=== PATIENT | female | born 1970 | race Two or more races ===

== ENCOUNTER 2017-06-08 20:02 | Observation (INO) | payer SELFPAY ==
[2017-06-08] MEDS ORDERED: ASPIRIN 325 MG TABLET PO ONE (20:27)
--- NOTE | 2017-06-08 20:28 | ER Document Report ---
ED Medical Screen (RME) - General Chief Complaint: Chest Pain Stated Complaint: CHEST PAIN Time Seen by Provider: 06/08/17 20:26 Mode of Arrival: Wheelchair Information source: Patient TRAVEL OUTSIDE OF THE [place] IN LAST 30 DAYS: No - HPI Patient complains to provider of: CP Onset: Just prior to arrival - pt . with onset of SSCP with some SOB starting earlier this evening. Denies diaphoresis or radiation of pain - Related Data Allergies/Adverse Reactions: No Known Allergies Allergy (Unverified 06/08/17 20:20) Physical Exam - Vital signs Vitals: Temp Pulse Resp BP Pulse Ox 97.8 F 93 12 115/70 100 06/08/17 20:15 06/08/17 20:15 06/08/17 20:15 06/08/17 20:15 06/08/17 20:15 Course - Vital Signs Vital signs: Temp Pulse Resp BP Pulse Ox 97.8 F 93 12 115/70 100 06/08/17 20:15 06/08/17 20:15 06/08/17 20:15 06/08/17 20:15 06/08/17 20:15
[2017-06-08 21:14] LABS: ABSOLUTE BASOPHILS # (AUTO) 0.1 10^3/uL (0.0-0.2); ABSOLUTE EOSINOPHILS # (AUTO) 0.1 10^3/uL (0.0-0.6); ABSOLUTE LYMPHOCYTES (AUTO) 2.4 10^3/uL (0.5-4.7); ABSOLUTE MONOCYTES (AUTO) 0.8 10^3/uL (0.1-1.4); ABSOLUTE NEUT (AUTO) 10.1 10^3/uL (1.7-8.2); BASOPHILS % (AUTO) 0.5 % (0-2); EOSINOPHILS % (AUTO) 0.8 % (0-6); HEMATOCRIT 37.3 % (36.0-47.0); HEMOGLOBIN 12.6 g/dL (12.0-15.5); HGB HCT DIFFERENCE 0.5; LYMPHOCYTES % (AUTO) 17.5 % (13-45); MEAN CORPUSCULAR HEMOGLOBIN 28.5 pg (27.0-33.4); MEAN CORPUSCULAR HGB CONC 33.8 g/dL (32.0-36.0); MEAN CORPUSCULAR VOLUME 84 fl (80-97); RED BLOOD COUNT 4.42 10^6/uL (3.72-5.28); RED CELL DISTRIBUTION WIDTH 13.7 % (11.5-14.0); SEGMENTED NEUTROPHILS % (AUTO) 75.2 % (42-78); WHITE BLOOD COUNT 13.5 10^3/uL (4.0-10.5)
[2017-06-08 21:28] LABS: ALANINE AMINOTRANSFERASE 34 U/L (9-52); ALBUMIN 4.1 g/dL (3.5-5.0); ALKALINE PHOSPHATASE 98 U/L (38-126); ANION GAP 14 (5-19); ASPARTATE AMINO TRANSFERASE 21 U/L (14-36); BILIRUBIN,DIRECT 0.3 mg/dL (0.0-0.4); BILIRUBIN,TOTAL 0.4 mg/dL (0.2-1.3); BLOOD UREA NITROGEN 15 mg/dL (7-20); CALCIUM 9.8 mg/dL (8.4-10.2); CARBON DIOXIDE 24 mmol/L (22-30); CHLORIDE 103 mmol/L (98-107); CREATINE KINASE 68 U/L (30-135); CREATININE RESULT 0.64 mg/dL (0.52-1.25); GLUCOSE 113 mg/dL (75-110); POTASSIUM 4.7 mmol/L (3.6-5.0); SODIUM 140.5 mmol/L (137-145); TOTAL PROTEIN 7.1 g/dL (6.3-8.2)
--- NOTE | 2017-06-08 21:29 | RADIOLOGY REPORT (SQ) ---
EXAM DESCRIPTION: CHEST PA/LAT COMPLETED DATE/TIME: 06/08/2017 9:22 pm REASON FOR STUDY: CP COMPARISON: None. EXAM PARAMETERS: NUMBER OF VIEWS: two views TECHNIQUE: Digital Frontal and Lateral radiographic views of the chest acquired. RADIATION DOSE: NA LIMITATIONS: none FINDINGS: LUNGS AND PLEURA: No opacities, masses or pneumothorax. No pleural effusion. MEDIASTINUM AND HILAR STRUCTURES: No masses or contour abnormalities. HEART AND VASCULAR STRUCTURES: Heart normal size. No evidence for failure. BONES: No acute findings. HARDWARE: None in the chest. OTHER: No other significant finding. IMPRESSION: NO SIGNIFICANT RADIOGRAPHIC FINDING IN THE CHEST. TECHNICAL DOCUMENTATION: JOB ID: [id number] [employer]- All Rights Reserved
[2017-06-08 21:39] LABS: CREATINE KINASE MB 1.36 ng/mL (<4.55)
[2017-06-08 21:47] LABS: TROPONIN I < 0.012 ng/mL
[2017-06-08] MEDS ORDERED: NORMAL SALINE 500 ML IV ONE (23:17)
--- NOTE | 2017-06-08 23:25 | ER Document Report ---
ED General - General Chief Complaint: Chest Pain Stated Complaint: CHEST PAIN Time Seen by Provider: 06/08/17 20:26 Mode of Arrival: Wheelchair Notes: Patient is a 47-year-old female. She is obtained using [employer] interpreter services. Dressing Room Attendant number is [id number]. Patient's 47-year-old female who was walking out of her car. Her are on the way to a social event. She said she did feel chest pressure and then passed out. When she woke up she continued to have chest pressure. She said she felt a heaviness in her chest and felt like someone sitting on her chest. She has had some numbness going into her right arm. She felt short of breath with the symptoms. They continued for approximately an hour. Her symptoms have now slowly subsided. She has never had anything like this before. She personally has no history of coronary disease. She does not see regular basis. She does smoke. She does have a family history of coronary disease. Her father recently had what sounds to be open heart surgery. She denies any leg pain or leg swelling. No history of PE or DVT. She denies any recent fevers or infections. No other complaints at this time. TRAVEL OUTSIDE OF THE [place] IN LAST 30 DAYS: No - Related Data Allergies/Adverse Reactions: No Known Allergies Allergy (Unverified 06/08/17 20:20) Past Medical History - General Information source: Patient - Social History Smoking Status: Current Every Day Smoker Chew tobacco use (# tins/day): No Frequency of alcohol use: Social Drug Abuse: None Family History: CAD Patient has suicidal ideation: No Patient has homicidal ideation: No Renal/ Medical History: Denies: Hx Peritoneal Dialysis Review of Systems - Review of Systems Notes: My Normal Review Basic REVIEW OF SYSTEMS: CONSTITUTIONAL : Denies fever, chills, or sweats. Denies recent illness. EENT: Denies eye, ear, throat, or mouth pain or symptoms. Denies nasal or sinus congestion. CARDIOVASCULAR: Heaviness on chest. RESPIRATORY: Difficulty breathing. GASTROINTESTINAL: Denies abdominal pain. Denies nausea, vomiting, or diarrhea. Denies constipation. Last BM: MUSCULOSKELETAL: Denies neck or back pain or joint pain or swelling. SKIN: Denies rash or skin lesions. NEUROLOGICAL: Syncopal episode. Denies headache. Denies weakness or paralysis or loss of use of either side. Denies problems with gait or speech. Denies sensory or motor loss. ALL OTHER SYSTEMS REVIEWED AND NEGATIVE. Physical Exam - Vital signs Vitals: Temp Pulse Resp BP Pulse Ox 97.8 F 93 12 115/70 100 06/08/17 20:15 06/08/17 20:15 06/08/17 20:15 06/08/17 20:15 06/08/17 20:15 - Notes Notes: General Appearance: Well nourished, alert, cooperative, no acute distress, no obvious discomfort. Well appearing. Vitals: reviewed, See vital signs table. Head: no swelling or tenderness to the head Eyes: PERRL, EOMI, Conjuctiva clear Mouth: No decreasd moisture Lungs: No wheezing, No rales, No rhonci, No accessory muscle use, good air exchange bilaterally. Heart: Normal rate, Regular rythm, No murmur, no rub Abdomen: Normal BS, soft, No rigidity, No abdominal tenderness, No guarding, no rebound, no abdominal masses, no organomegaly Extremities: strength 5/5 in all extremities, good pulses in all extremities, no swelling or tenderness in the extremities, no edema. Skin: warm, dry, appropriate color, no rash Neuro: speech clear, oriented x 3, normal affect, responds appropriately to questions. Course - Re-evaluation Re-evalutation: 06/08/17 23:24 I am concerned with the patient's history. She is a heart score for. I did speak with Dr. Bonilla she requests that we do a CTA first before she admits the patient due to the history of syncope with the chest pain. I did explain this to the patient using the park interpreter and she is agreeable to having a CTA obtained. 06/09/17 00:19 CTA was negative. I did speak with Dr. Bonilla who agrees with the patient. Patient's R scores of 4. This is due to his history, age, and risk factors. Dictation of this chart was performed using voice recognition software; therefore, there may be some unintended grammatical errors. - Vital Signs Vital signs: Temp Pulse Resp BP Pulse Ox 97.8 F 93 20 114/68 100 06/08/17 20:15 06/08/17 20:15 06/08/17 23:19 06/08/17 23:19 06/08/17 23:19 - Laboratory Result Diagrams: 06/08/17 20:26 06/08/17 20:26 Laboratory results interpreted by me: 06/08/17 06/08/17 20:26 20:26 WBC 13.5 H Absolute Neutrophils 10.1 H Glucose 113 H - EKG Interpretation by Me Additional EKG results interpreted by me: 06/08/17 23:25 EKG is reviewed and interpreted by me. EKG shows normal sinus rhythm with rate of [address] segment elevation or depression. No ischemic T-wave inversions. [place] interval, QRS duration, QTc intervals are within normal range. No old EKG available for comparison. Discharge - Discharge Clinical Impression: Chest pain Qualifiers: Chest pain type: unspecified Qualified Code(s): R07.9 - Chest pain, unspecified Condition: Stable Disposition: ADMITTED OBSERVATION Admitting Provider: Hospitalist Unit Admitted: Telemetry
--- NOTE | 2017-06-09 00:12 | RADIOLOGY REPORT (SQ) ---
EXAM DESCRIPTION: CTA of the chest per PE protocol with contrast. CLINICAL HISTORY: chest pain, syncope COMPARISON: None Available. TECHNIQUE: CTA of the chest obtained following the uncomplicated intravenous administration of 61 mL Isovue-370. 3-D/MIP reformatted images of the chest available for evaluation. FINDINGS: Chest: Mediastinal windows demonstrate an excellent contrast bolus. No pulmonary embolus identified. Visualized thyroid gland is unremarkable. Great vessels have normal anatomic configuration. No cardiomegaly, coronary artery atherosclerosis, or pericardial effusion. No abnormalities of the esophagus. Scattered mediastinal lymph nodes are not enlarged by CT criteria. Lung windows demonstrate no consolidation, pneumothorax, or pleural effusion. No abnormalities of the visualized trachea or airways. Limited images of the upper abdomen demonstrate no abnormalities of the visualized liver, spleen, pancreas, left adrenal gland, gallbladder, or kidneys. 1.5 cm lipid rich left adrenal adenoma is almost certainly benign and requires no further follow-up. No destructive osseous lesions. Normal degenerative change of the thoracic spine. DLP: 478.83 mGycm IMPRESSION: 1. No pulmonary embolism identified. This exam was performed according to our departmental dose-optimization program, which includes automated exposure control, adjustment of the mA and/or kV according to patient size and/or use of iterative reconstruction technique.
[2017-06-09] MEDS ORDERED: NORMAL SALINE 1000 ML 2,000 ML IV ONE (01:55)
[2017-06-09] MEDS ORDERED: NITROGLYCERIN 0.4 MG/TAB 25 TAB/BOTTLE SL PRN (01:59)
[2017-06-09] MEDS ORDERED: NORMAL SALINE 1000 ML 1,000 ML IV PRN (01:59)
[2017-06-09] MEDS ORDERED: LANSOPRAZOLE 30 MG TAB.RAP.DR PO ONE (01:59)
[2017-06-09] MEDS ORDERED: DIAZEPAM 5 MG TABLET PO PRN (01:59)
[2017-06-09] MEDS ORDERED: MORPHINE SULFATE 10 MG/ML INJ IV PRN (01:59)
[2017-06-09] MEDS ORDERED: ONDANSETRON HCL INJ/PF 4 MG/2 ML SDV IV PRN (01:59)
[2017-06-09] MEDS ORDERED: MAG HYDROX/AL HYDROX/SIMETH SUSP 30 ML UDCUP PO PRN (01:59)
[2017-06-09] MEDS ORDERED: ATORVASTATIN CALCIUM 40 MG TABLET PO ONE (02:15)
[2017-06-09 03:44] LABS: CREATINE KINASE MB 1.26 ng/mL (<4.55)
[2017-06-09 03:48] LABS: CHOLESTEROL 161.52 mg/dL (0-200); Direct HDL 45 mg/dL (>40); TRIGLYCERIDES 109 mg/dL (<150)
[2017-06-09 03:56] LABS: TROPONIN I < 0.012 ng/mL
[2017-06-09 03:59] LABS: DIRECT LDL 111 mg/dL (<100)
--- NOTE | 2017-06-09 04:28 | PDOC H&P ---
History of Present Illness Admission Date/PCP: 06/09/17 00:58 NO PCP History of Present Illness: SID HCEEMA is a 47 year old female with no past medical history with the exception of an ulcer who presents to the emergency department with complaints of chest pain and syncope. Patient reports she was getting out of the car she developed blurry vision and had a subsequent loss of consciousness. Patient did not strike her head and denies any pain in her neck. She reports that she began having some chest pressure that radiated to her right arm after arousing from her syncopal state. She reports she continued to have chest pain for about 1 hour which resolved without the administration of nitroglycerin or analgesics. Patient did report that her chest pain was associated with some shortness of breath but denied any nausea, vomiting, or diaphoresis. She denies any aggravating or relieving symptoms. Patient does report that she continues to have menses and she is currently on her menstrual. CTA performed in the emergency department is negative for acute pulmonary embolus. She is referred to the hospitalist service for evaluation of chest pain. Past Medical History Cardiac Medical History: Denies: Congestive Heart Failure, Myocardial Infarction, Hypertension Pulmonary Medical History: Denies: Asthma, Bronchitis, Chronic Obstructive Pulmonary Disease (COPD), Pneumonia, Tuberculosis Neurological Medical History: Denies: Seizures Renal/ Medical History: Denies: End Stage Renal Disease GI Medical History: Reports: Gastroesophageal Reflux Disease, Peptic Ulcer Disease Denies: Cirrhosis Musculoskeltal Medical History: Denies: Arthritis Psychiatric Medical History: Denies: Bipolar Disorder, Depression Hematology: Denies: Anemia, Bleeding Tendencies Past Surgical History Past Surgical History: Reports: Section Social History Smoking Status: Former Smoker Frequency of Alcohol Use: Occasional Hx Recreational Drug Use: No Drugs: None Hx Prescription Drug Abuse: No - Advance Directive Resuscitation Status: Full Code Surrogate healthcare decision maker:: Son, Elile Treviño Family History Family History: CAD, DM Parental Family History Reviewed: Yes Children Family History Reviewed: Yes Sibling(s) Family History Reviewed.: Yes Medication/Allergy Allergies/Adverse Reactions: No Known Allergies Allergy (Unverified 06/08/17 20:20) Review of Systems Constitutional: ABSENT: chills, fever(s), headache(s), weight gain, weight loss Eyes: ABSENT: visual disturbances Ears: ABSENT: hearing changes Cardiovascular: ABSENT: chest pain, dyspnea on exertion, edema, orthropnea, palpitations Respiratory: ABSENT: cough, hemoptysis Gastrointestinal: PRESENT: abdominal pain, constipation, heartburn. ABSENT: diarrhea, hematemesis, hematochezia, melena, nausea, vomiting Genitourinary: ABSENT: dysuria, hematuria Musculoskeletal: ABSENT: joint swelling Integumentary: ABSENT: rash, wounds Neurological: ABSENT: abnormal gait, abnormal speech, confusion, dizziness, focal weakness, syncope Psychiatric: ABSENT: anxiety, depression, homidical ideation, suicidal ideation Endocrine: ABSENT: cold intolerance, heat intolerance, polydipsia, polyuria Hematologic/Lymphatic: ABSENT: easy bleeding, easy bruising Physical Exam Vital Signs: Temp Pulse Resp BP Pulse Ox 98.2 F 67 17 109/48 L 100 06/09/17 02:13 06/09/17 02:40 06/09/17 02:13 06/09/17 02:13 06/09/17 02:13 General appearance: PRESENT: no acute distress, well-developed, well-nourished Head exam: PRESENT: atraumatic, normocephalic Eye exam: PRESENT: conjunctiva pink, EOMI, PERRLA. ABSENT: scleral icterus Ear exam: PRESENT: normal external ear exam Mouth exam: PRESENT: moist, tongue midline Neck exam: ABSENT: carotid bruit, JVD, lymphadenopathy, thyromegaly Respiratory exam: PRESENT: clear to auscultation vicente. ABSENT: rales, rhonchi, wheezes Cardiovascular exam: PRESENT: RRR. ABSENT: diastolic murmur, rubs, systolic murmur Pulses: PRESENT: normal dorsalis pedis pul Vascular exam: PRESENT: normal capillary refill GI/Abdominal exam: PRESENT: normal bowel sounds, soft, tenderness - Diffusely tender. ABSENT: distended, guarding, mass, organolmegaly, rebound Rectal exam: PRESENT: deferred Extremities exam: PRESENT: full ROM. ABSENT: calf tenderness, clubbing, pedal edema Neurological exam: PRESENT: alert, awake, oriented to person, oriented to place , oriented to time, oriented to situation, CN II-XII grossly intact. ABSENT: motor sensory deficit Psychiatric exam: PRESENT: appropriate affect, normal mood. ABSENT: homicidal ideation, suicidal ideation Skin exam: PRESENT: dry, intact, warm, other - Acanthosis nigricans around the neck and armpits. ABSENT: cyanosis, rash Results Laboratory Results: 06/09/17 02:45 Triglycerides 109 Cholesterol 161.52 LDL Cholesterol Direct 111 H VLDL Cholesterol 22.0 HDL Cholesterol 45 06/09/17 02:45 CK-MB (CK-2) 1.26 Troponin I < 0.012 Impressions: Chest X-Ray 06/08/17 20:26 IMPRESSION: NO SIGNIFICANT RADIOGRAPHIC FINDING IN THE CHEST. Chest/Abdomen CTA 06/08/17 23:17 IMPRESSION: 1. No pulmonary embolism identified. This exam was performed according to our departmental dose-optimization program, which includes automated exposure control, adjustment of the mA and/or kV according to patient size and/or use of iterative reconstruction technique. Assessment & Plan - Diagnosis (1) Chest pain Qualifiers: Chest pain type: unspecified Qualified Code(s): R07.9 - Chest pain, unspecified Is this a current diagnosis for this admission?: Yes Plan: Place patient on aspirin, nitroglycerin, morphine, but no beta-ashlyn or JAKOB inhibitor at this time as patient is mildly hypotensive. Feel the patient's syncopal episode is likely related to orthostasis. Will check orthostatics and administer a 2 L bolus of normal saline. Place patient on telemetry and monitor for arrhythmia. Check fasting lipid panel. Check cardiac enzymes every [address] patient for stress test. She has a family history and is obese. She does not normally follow with physician. I have informed her family that it is incompetent on them to have her follow with her primary care physician for routine maintenance. (2) Obesity (BMI 30.0-34.9) Is this a current diagnosis for this admission?: Yes (3) Acanthosis nigricans Is this a current diagnosis for this admission?: Yes Plan: Check hemoglobin A1c (4) Peptic ulcer disease Is this a current diagnosis for this admission?: Yes Plan: Place patient on PPI - Time Time Spent: 30 to 50 Minutes Medications reviewed and adjusted accordingly: Yes Anticipated discharge: Home Within: within 48 hours - Inpatient Certification Based on my medical assessment, after consideration of the patient's comorbidities, presenting symptoms, or acuity I expect that the services needed warrant INPATIENT care.: No I certify that my determination is in accordance with my understanding of Medicare's requirements for reasonable and necessary INPATIENT services [42 CFR 412.3e].: No Medical Necessity: Need For Continuous Telemetry Monitoring Post Hospital Care: D/C [employer] Documentation
[2017-06-09] MEDS ORDERED: NORMAL SALINE 1000 ML 1,000 ML IV ONE (04:53)
[2017-06-09] MEDS ORDERED: LANSOPRAZOLE 30 MG TAB.RAP.DR PO SCH (06:00)
[2017-06-09 09:08] LABS: CREATINE KINASE MB 1.23 ng/mL (<4.55)
[2017-06-09 09:14] LABS: TROPONIN I < 0.012 ng/mL
--- NOTE | 2017-06-09 09:14 | EKG REPORT ---
SEVERITY:- NORMAL ECG - SINUS RHYTHM : Confirmed by: Valdo Murry 09-Jun-2017 09:12:57
[2017-06-09] MEDS ORDERED: ENOXAPARIN SODIUM INJ 80 MG/0.8 ML DISP.SYRIN SUBCUT SCH (10:00)
[2017-06-09] MEDS ORDERED: ASPIRIN 325 MG TABLET, ENT COATED PO SCH (10:00)
[2017-06-09] MEDS ORDERED: DOCUSATE SODIUM 100 MG CAPSULE PO SCH (10:00)
[2017-06-09] MEDS ORDERED: AMINOPHYLLINE INJ/PF 250 MG/10 ML SDV IV ONE (12:24)
[2017-06-09] MEDS ORDERED: REGADENOSON INJ 0.4 MG/5 ML DISP.SYRIN IV ONE (12:24)
--- NOTE | 2017-06-09 14:34 | DRAGON STRESS TEST REPORT ---
INTRAVENOUS LEXISCAN CARDIOLITE STRESS TEST USING SINGLE PHOTON EMMISION COMPUTERIZED TOMOGRAPHIC. DATE OF PROCEDURE: June 09, 2017 INDICATION : Chest pain CARDIAC RISK FACTORS: Dyslipidemia, family history of CAD RESTING EKG: Sinus rhythm without any baseline ST-T wave changes STRESS EKG: No significant changes noted with LexiScan bolus REASON FOR TERMINATION: Protocol. PROCEDURE REPORT: Baseline heart rate 69 beats per minute with blood pressure of 104/64. Patient had no significant complaints. Heart rate at 2 minutes post bolus 113 with a blood pressure of 116/59. 3 minutes post bolus heart rate 105 with blood pressure of 108/63. No significant EKG changes were noted. Patient had no significant complaints during the procedure or postprocedure. Patient injected with Aminophyllin 75 mg at 3 minutes or later after Lexiscan bolus. CONCLUSIONS: Normal EKG and hemodynamic response to IV LexiScan. NUCLEAR DATA: At rest the patient was given 10.49 millicuries of technetium 99 sestamibi injected intravenously. As per protocol rest gated SPECT images were obtained. Subsequently the patient was given intravenous LexiScan at a dose of 0.4 mg in 5 mL intravenously, followed by flush with normal saline. Subsequently the stress dose of 31.2 millicuries of technetium 99 sestamibi was injected intravenously. As per protocol stress gated images were obtained. NUCLEAR INTERPRETATION: Both raw and processed data were used for interpretation. Visual, qualitative, computer-generated quantitative data was used. There was good myocardial uptake of technetium compound. Motion artifact and soft tissue attenuations were noted. Increased visceral uptake was noted. No definitive areas of transient perfusion defect noted. No definitive areas of fixed perfusion defect or scars noted. EKG gated imaging showed LV EF at 60 %, rest and stress gated EF similar visually. T. I D. ratio was 0.96. Lung heart ratio noted to be within normal limits 0.36. No significant extracardiac and abnormal radiotracer activities were noted. RV free wall uptake was noted to be WNL. IMPRESSION: Also refer to comments under nuclear interpretation. Also test results needs to be interpreted in the context of pretest probability. 1. There is no definitive scintigraphic evidence of LexiScan induced myocardial ischemia. 2. There is no definitive scintigraphic evidence of myocardial infarction/scar. 3. EKG gated imaging shows left ventricular ejection fraction of approximately 60 %. 4. Clinical correlation requested as occasionally single vessel disease or balanced ischemia could be missed. In approximately 10% of the cases Lexiscan may not cause adequate vasodilatory stress. RECOMMENDATIONS: Aggressive risk factor modification, medical therapy. Clinical correlation with echocardiogram derived ejection fraction. Inability to exercise by itself can lead to increased cardiovascular event risks. Consider cardiology consultation and or follow-up if clinically indicated. I AM AVAILABLE FOR CARDIOLOGY CONSULTATION AND FOLLOWUP IF REQUESTED BY PMD Valdo Murry M.D., [employer] french weaver, Board certified in cardiovascular diseases, Nuclear cardiology, Echocardiography Cardiac CT and cardiac MRI Ph. [phone] [facility]
[2017-06-09 15:26] LABS: CREATINE KINASE MB 1.29 ng/mL (<4.55)
[2017-06-09 15:32] LABS: TROPONIN I < 0.012 ng/mL
--- NOTE | 2017-06-09 15:38 | PDOC DISCHARGE SUMMARY ---
General - Admit/Disc Date/PCP Admission Date/Primary Care Provider: 06/09/17 00:58 Discharge Date: 06/09/17 - Discharge Diagnosis (1) Chest pain Is this a current diagnosis for this admission?: Yes Summary: Patient denies any further chest pain resolved about 230 this morning in the ER. She had negative stress test stable for discharge home - Additional Information Resuscitation Status: Full Code Discharge Diet: As Tolerated Discharge Activity: Activity As Tolerated Home Medications: Atorvastatin Calcium [Lipitor 40 mg Tablet] 40 mg PO QHS #30 tablet 06/09/17 History of Present Illness History of Present Illness: SID CHEEMA is a 47 year old female speaking only patient was admitted for chest pain. I did go through the approved hospital medical interpreter this morning for my assessment. Patient denies any further complaints of chest pain. She does eat quite a bit of hot spicy food and has been taken a lot of Tylenol and Advil [id number] for headaches. She has had a history of PUD in which she takes medication [id number] and I will encourage her to continue that. While the patient was in the hospital she underwent a stress test that was negative for acute ischemia. Patient denies having any more chest pain no nausea vomiting diaphoresis shortness of breath. She was stable to be discharged home follow-up with her primary care physician outpatient 1-2 weeks. I did give her a prescription for Lipitor 40 mg 1 p.o. at bedtime encourage her to take an enteric coated aspirin daily follow-up for any further chest pain. Physical Exam Vital Signs: Temp Pulse Resp BP Pulse Ox 98.2 F 75 16 99/57 L 100 06/09/17 08:10 06/09/17 08:10 06/09/17 08:10 06/09/17 08:10 06/09/17 08:10 Intake & Output 06/08/17 06/09/17 06/10/17 06:59 06:59 06:59 Intake Total 150 960 Balance 150 960 Weight 69.7 kg General appearance: PRESENT: no acute distress, obese, well-developed, well- nourished Head exam: PRESENT: atraumatic, normocephalic Eye exam: PRESENT: conjunctiva pink, EOMI, PERRLA. ABSENT: scleral icterus Ear exam: PRESENT: normal external ear exam Mouth exam: PRESENT: moist, tongue midline Neck exam: ABSENT: carotid bruit, JVD, lymphadenopathy, thyromegaly Respiratory exam: PRESENT: clear to auscultation vicente. ABSENT: rales, rhonchi, wheezes Cardiovascular exam: PRESENT: RRR. ABSENT: diastolic murmur, rubs, systolic murmur Pulses: PRESENT: normal dorsalis pedis pul Vascular exam: PRESENT: normal capillary refill GI/Abdominal exam: PRESENT: normal bowel sounds, soft. ABSENT: distended, guarding, mass, organolmegaly, rebound, tenderness Rectal exam: PRESENT: deferred Extremities exam: PRESENT: full ROM. ABSENT: calf tenderness, clubbing, pedal edema Neurological exam: PRESENT: alert, awake, oriented to person, oriented to place , oriented to time, oriented to situation, CN II-XII grossly intact. ABSENT: motor sensory deficit Psychiatric exam: PRESENT: appropriate affect, normal mood. ABSENT: homicidal ideation, suicidal ideation Skin exam: PRESENT: dry, intact, warm. ABSENT: cyanosis, rash Results Laboratory Results: 06/09/17 06/09/17 02:45 08:27 Triglycerides 109 Cholesterol 161.52 LDL Cholesterol Direct 111 H VLDL Cholesterol 22.0 HDL Cholesterol 45 TSH 1.22 06/09/17 06/09/17 06/09/17 02:45 08:27 14:35 CK-MB (CK-2) 1.26 1.23 1.29 Troponin I < 0.012 < 0.012 < 0.012 Impressions: Chest X-Ray 06/08/17 20:26 IMPRESSION: NO SIGNIFICANT RADIOGRAPHIC FINDING IN THE CHEST. Chest/Abdomen CTA 06/08/17 23:17 IMPRESSION: 1. No pulmonary embolism identified. This exam was performed according to our departmental dose-optimization program, which includes automated exposure control, adjustment of the mA and/or kV according to patient size and/or use of iterative reconstruction technique.
[2017-06-09 15:51] VITALS: BP 95/63
[2017-06-09] MEDS ORDERED: ATORVASTATIN CALCIUM 40 MG TABLET PO SCH (22:00)
== END 2017-06-09 16:05 | disposition home or self-care (01) ==
LOC: ER 20:02 → UNDOADMOB 06-09 00:51 → EH 06-09 00:51 → 5 06-09 02:13
PROVIDERS: ADMIT Family Medicine; ATTEND Family Medicine
DX: R07.89 Other chest pain (principal); K27.9 Peptic ulcer, site unspecified, unspecified as acute or chronic, without hemorrhage or perforation; L83 Acanthosis nigricans; E66.9 Obesity, unspecified; I95.9 Hypotension, unspecified; R55 Syncope and collapse; R06.02 Shortness of breath; R10.9 Unspecified abdominal pain; K59.00 Constipation, unspecified; R20.0 Anesthesia of skin; R12 Heartburn; Z87.891 Personal history of nicotine dependence; Z87.19 Personal history of other diseases of the digestive system; Z82.49 Family history of ischemic heart disease and other diseases of the circulatory system; Z68.33 Body mass index [BMI] 33.0-33.9, adult; Z83.3 Family history of diabetes mellitus
CPT/HCPCS: 93005; 99285; 96360; 36415 ×2; 82553 ×2; 82550; 84443; 85025; 80053; 84484 ×2; 83036; 80061; 93017; 71020; 78452; 71275; 93010; A9500; J2785; J7030; J7040; J1650; J0280; Q9969